=== PATIENT | female | born 1970 ===

== ENCOUNTER 2023-10-29 08:38 | Day surgery (SDC) | payer OTHER ==
[~2023-10-29] VITALS: Ht 152.4 cm; Wt 56.7 kg
[~2023-10-29 08:38] MED LIST: ALLEGRA-D 24 H1 EACH PO; OMEPRAZOLE-BIC1 EAC1 PO; SINGULAIR10 MG PO
[2023-10-29] MEDS ORDERED: POVIDONE-IODINE 118 ML BOTT TOP ONE ×2 (13:40→14:15)
[2023-10-29] MEDS ORDERED: TYLENOL325 MG PO (15:12)
== END 2023-10-29 21:15 | disposition home or self-care (01) ==
LOC: CIR.AMB 08:38
PROVIDERS: ATTEND Obstetrics & Gynecology Gynecology
DX: N84.0 Polyp of corpus uteri (principal); Z88.6 Allergy status to analgesic agent